=== PATIENT | male | born 1960 | race Caucasian/White ===

== ENCOUNTER → 2016-09-17 | Outpatient (CLI) | payer BC ==
--- NOTE | 2016-09-18 13:27 | REP ---
RIGHT KNEE SERIES: FIVE VIEWS. History: Painful right knee. Findings: There is medial compartment joint space narrowing, sclerosis, and osteophyte formation consistent with osteoarthritis. There is some patellofemoral spurring as well. Fullness in the suprapatellar bursa indicates small quantity of joint effusion. No erosive change is seen. Impression: Medial and patellofemoral compartment osteoarthritis. Small joint effusion. Signed by Ambrose Shea MD 09/18/2016 03:59 P
== END | disposition home or self-care (01) ==
LOC: M WUC 16:32
PROVIDERS: ATTEND Physician Assistant
DX: M25.561 Pain in right knee (principal); M17.11 Unilateral primary osteoarthritis, right knee; M25.461 Effusion, right knee

== ENCOUNTER 2017-12-01 20:35 | Emergency (ER) | payer OTHER, BC ==
[~2017-12-01 20:35] MED LIST: LIDOCAINE 1% MDV 20ML VIAL SC
== END 2017-12-01 21:19 | disposition home or self-care (01) ==
LOC: M ED 20:35
DX: S61.411A Laceration without foreign body of right hand, initial encounter (principal); W26.8XXA Contact with other sharp object(s), not elsewhere classified, initial encounter; Y92.89 Other specified places as the place of occurrence of the external cause; Z79.899 Other long term (current) drug therapy
CPT/HCPCS: 12001